=== PATIENT | female | born 1955 | race Caucasian/White ===

== ENCOUNTER 2017-01-24 20:32 | Emergency (ER) | payer OTHER ==
[~2017-01-24] VITALS: Ht 172.7 cm; Wt 95.3 kg
[2017-01-24] MEDS ORDERED: AMITRIPTYLINE H25 M3 PO (20:41)
[2017-01-24] MEDS ORDERED: GLUCOPHAGE500 MG PO (20:41)
[2017-01-24] MEDS ORDERED: MOBIC7.5 MG PO (22:03)
[2017-01-24] MEDS ORDERED: HYDROCODONE-AP1 EAC6 PO (22:03)
[2017-01-24 22:26] VITALS: BP 125/75
== END 2017-01-24 22:28 | disposition home or self-care (01) ==
LOC: ER 20:32
DX: S20.211A Contusion of right front wall of thorax, initial encounter (principal); E11.9 Type 2 diabetes mellitus without complications; W01.198A Fall on same level from slipping, tripping and stumbling with subsequent striking against other object, initial encounter; Y93.89 Activity, other specified; Y92.89 Other specified places as the place of occurrence of the external cause; Y99.8 Other external cause status